=== PATIENT | male | born 1975 | race Caucasian/White ===

== ENCOUNTER 2018-08-30 05:26 | Inpatient (IN) | payer BC ==
[~2018-08-30] VITALS: Ht 165.1 cm; Wt 91.2 kg
[2018-08-30] MEDS ORDERED: SODIUM CHLORIDE 0.9% 1,000 ML IV ONE (06:41)
[2018-08-30] MEDS ORDERED: ASPIRIN 81MG TABLET PO ONE (06:45)
[2018-08-30 07:09] LABS: BASOPHILS % 0.8 % (0.0-2.0); EOSINOPHILS % 0.9 % (0.0-5.0); HEMATOCRIT. 48.1 % (42.0-52.0); HEMOGLOBIN. 16.3 g/dL (14.0-18.0); LYMPHOCYTES % 23.9 % (20.0-50.0); MEAN CORPUSCULAR HEMOGLOBIN 30.6 pg (28.0-32.0); MEAN CORPUSCULAR VOLUME 90.4 fL (80.0-94.0); MEAN PLATELET VOLUME 12.4 fl (7.4-10.4); MONOCYTES % 6.1 % (2.0-8.0); NEUTROPHILS % 68.3 % (40.0-76.0); PLATELET 148 x1000/uL (130-400); RED BLOOD CELL COUNT 5.32 mill/uL (4.7-6.1); RED CELL DISTRIBUTION WIDTH 14.1 % (11.6-14.6)
[2018-08-30 07:13] LABS: CHLORIDE 106 mEq/L (98-107)
[2018-08-30 07:17] LABS: ETHANOL BLOOD 10 mg/dL
[2018-08-30 07:18] LABS: D-DIMER < 0.19 mg/L FEU (<0.50); PARTIAL THROMBOPLASTIN TIME 29.4 sec (23.4-31.0); PROTHROMBIN TIME 10.3 sec (9.1-11.1)
[2018-08-30 07:22] LABS: CREATINE KINASE 176 IU/L (39-308)
[2018-08-30 08:26] LABS: *AMPHETAMINES SCREEN URINE NEGATIVE (NEGATIVE); *BARBITURATES SCREEN URINE NEGATIVE (NEGATIVE); *BENZODIAZEPINES SCREEN URINE NEGATIVE (NEGATIVE); *COCAINE SCREEN URINE NEGATIVE (NEGATIVE); METHADONE URINE SCREEN NEGATIVE (NEGATIVE); OPIATES URINE SCREEN NEGATIVE (NEGATIVE)
[2018-08-30 08:27] LABS: CANNABINOID URINE SCREEN NEGATIVE (NEGATIVE); PHENCYCLIDINE URINE SCREEN NEGATIVE (NEGATIVE)
[2018-08-30 12:00] VITALS: BP 152/90
[2018-08-30 12:16] VITALS: BP 150/92
[2018-08-30] MEDS ORDERED: HYDROCODONE/ACETAMINOPHEN 5/325MG TABLET PO PRN (14:00)
[2018-08-30] MEDS ORDERED: ONDANSETRON HCL 4MG/2ML INJ IV PRN (14:00)
[2018-08-30] MEDS ORDERED: ACETAMINOPHEN 325MG TABLET PO PRN (14:00)
[2018-08-30] MEDS ORDERED: MAGNESIUM/ALUMINUM HYDROXIDE/SIMETHICONE 30ML UDC PO PRN (14:00)
[2018-08-30] MEDS ORDERED: CLONIDINE 0.1MG TABLET PO PRN (14:00)
[2018-08-30] MEDS: ENOXAPARIN 40MG/0.4ML SYR SUBCUT SCH (15:53)
[2018-08-30 16:00] VITALS: BP 123/73
[2018-08-30] MEDS ORDERED: INFLUENZA VIRUS VACCINE(AFLURIA) 0.5ML SYR IM ONE (17:15)
[2018-08-30 17:54] LABS: CREATINE KINASE MB FRACTION 4.2 ng/mL (0.5-3.6)
[2018-08-30 20:00] VITALS: BP 100/62
[2018-08-31] VITALS: BP 105/55
[2018-08-31 02:44] LABS: CREATINE KINASE MB FRACTION 2.5 ng/mL (0.5-3.6)
[2018-08-31 04:00] VITALS: BP 111/70
[2018-08-31 08:07] VITALS: BP 120/76
[2018-08-31] MEDS: ASPIRIN 81MG EC TABLET PO SCH (09:03)
[2018-08-31] MEDS: ENOXAPARIN 40MG/0.4ML SYR SUBCUT SCH (09:03)
[2018-08-31 10:11] LABS: BASOPHILS % 0.5 % (0.0-2.0); EOSINOPHILS % 2.2 % (0.0-5.0); HEMATOCRIT. 43.9 % (42.0-52.0); HEMOGLOBIN. 15.2 g/dL (14.0-18.0); LYMPHOCYTES % 29.1 % (20.0-50.0); MEAN CORPUSCULAR HEMOGLOBIN 31.2 pg (28.0-32.0); MEAN CORPUSCULAR VOLUME 90.4 fL (80.0-94.0); MEAN PLATELET VOLUME 11.8 fl (7.4-10.4); MONOCYTES % 6.3 % (2.0-8.0); NEUTROPHILS % 61.9 % (40.0-76.0); PLATELET 120 x1000/uL (130-400); RED BLOOD CELL COUNT 4.86 mill/uL (4.7-6.1); RED CELL DISTRIBUTION WIDTH 14.2 % (11.6-14.6)
[2018-08-31 12:22] VITALS: BP 120/78
[2018-08-31 12:23] LABS: CHLORIDE 104 mEq/L (98-107)
[2018-08-31 12:34] LABS: LDL CHOLESTEROL 138 mg/dL (5-100)
[2018-08-31 12:36] LABS: HDL CHOLESTEROL 31 mg/dL (40-59)
[2018-08-31 12:37] LABS: T4 FREE 0.87 ng/dL (0.76-1.46)
[2018-08-31 16:27] VITALS: BP 112/78
[2018-08-31 20:00] VITALS: BP 143/74
[2018-09-01] VITALS: BP 100/60
[2018-09-01 04:00] VITALS: BP 114/74
[2018-09-01 08:00] VITALS: BP 102/72
[2018-09-01] MEDS ORDERED: REGADENOSON 0.4 MG/5 ML IV ONE ×2 (08:45→09:10)
[2018-09-01] MEDS: ENOXAPARIN 40MG/0.4ML SYR SUBCUT SCH (09:53)
[2018-09-01] MEDS: ASPIRIN 81MG EC TABLET PO SCH (09:53)
[2018-09-01 11:26] VITALS: BP 116/82
[2018-09-01 12:14] VITALS: BP 104/54
[2018-09-01] MEDS ORDERED: ATORVASTATIN CALCIUM 10MG TABLET PO SCH (21:00)
== END 2018-09-01 13:50 | disposition home or self-care (01) | DRG 310 ==
LOC: ER 05:26 → 6WST 08:38 → EDBEDREQ 08:43 → ENRESERV 10:57
PROVIDERS: ADMIT Hospitalist; ATTEND Hospitalist
DX: I47.1 Supraventricular tachycardia (principal); I10 Essential (primary) hypertension; E78.5 Hyperlipidemia, unspecified; Z82.49 Family history of ischemic heart disease and other diseases of the circulatory system
CPT/HCPCS: 36415; 71045; 78452; 80061; 80305; 82550; 82553; 83880; 84439; 84443; 84484; 85379; 90686; 93005; 93017; 93306; 93970; 99285; A9500; G0482; J1650; J2785; J7030